=== PATIENT | female | born 1960 | race Caucasian/White ===

== ENCOUNTER → 2024-06-15 | Outpatient (CLI) | payer BC ==
[~2024-06-15] MED LIST: CELEXA 20MG20 MG/TAB PO; MULTI VITAMINS1 TAB PO; OMEGA-3 1000 MG1 CAP PO; PAXLOVID CO-PA1 EACH PO; PROTONIX 40MG T40 MG PO
== END ==
LOC: MC.RAD 11:11
DX: Z12.31 Encounter for screening mammogram for malignant neoplasm of breast (principal)